=== PATIENT | female | born 1975 | race Hispanic/Latino ===

== ENCOUNTER 2021-12-11 19:39 | Inpatient (IN) | payer MEDICAID, OTHER, SELFPAY ==
[2021-12-11] MEDS ORDERED: Acetaminophen 500 MG TAB PO PRN (20:12)
[2021-12-11] MEDS ORDERED: Butorphanol Tartrate 1 MG/ML VIAL SLOW IVP PRN (20:12)
[2021-12-11] MEDS ORDERED: Lidocaine 1% (PF) 30 ML VIAL SC PRN (20:12)
[2021-12-11] MEDS ORDERED: Ondansetron PF 4 MG/2 ML Vial IVP PRN (20:12)
[2021-12-11] MEDS ORDERED: HYDROcodone/Acetaminophen 5/325 mg Tablet PO PRN (20:12)
[2021-12-11] MEDS ORDERED: Methylergonovine 0.2 MG/ML VIAL IM PRN (20:12)
[2021-12-11] MEDS ORDERED: Promethazine HCl 25 MG/ML VIAL IM PRN (20:12)
[2021-12-11] MEDS ORDERED: Diphenoxylate HCl/Atropine Tablet PO PRN (20:12)
[2021-12-11] MEDS ORDERED: Misoprostol 200 MCG TAB PR PRN (20:12)
[2021-12-11] MEDS ORDERED: hydrALAZINE 20 MG/ML VIAL SLOW IVP PRN (20:12)
[2021-12-11] MEDS ORDERED: Carboprost 250 MCG/ML AMP IM PRN (20:12)
[2021-12-11] MEDS ORDERED: Ibuprofen 800 MG TAB PO PRN (20:12)
[2021-12-11 20:23] VITALS: BMI 29.7
[2021-12-11 21:00] LABS: Hemoglobin 12.1 g/dL (12.0-15.5); Mean Corpuscular Hemoglobin 28.3 pg (27.0-33.0); Mean Corpuscular Volume 83.2 fl (81.6-98.3); Mean Platelet Volume 10.2 fl (7.4-10.4); Platelet Count 296 10x3/uL (150-450); RBC Distribution Width 14.4 % (11.5-14.5); Red Blood Cell (RBC) Count 4.28 10x6/uL (3.90-5.03); White Blood Cell (WBC) Count 10.8 10x3/uL (3.5-10.5)
[2021-12-11] MEDS ORDERED: Lactated Ringer's 1,000 ML IV SCH (21:00)
[2021-12-11] MEDS ORDERED: NS w/ Oxytocin 30 units 500 ML IV SCH (21:00)
[2021-12-11] MEDS ORDERED: Misoprostol 100 MCG TAB VAG SCH (21:00)
[2021-12-11] MEDS: Misoprostol 100 MCG TAB VAG SCH (21:14)
[2021-12-12] MEDS: Misoprostol 100 MCG TAB VAG SCH (02:51)
== END 2021-12-12 10:11 | disposition home or self-care (01) | DRG 779 ==
LOC: CSHLD 19:39
PROVIDERS: ADMIT Family Medicine; ATTEND Family Medicine
PROC: 10E0XZZ Delivery of Products of Conception, External Approach (ICD-10-PCS; principal; 2021-12-12)
PROC: 3E0P7VZ Introduction of Hormone into Female Reproductive, Via Natural or Artificial Opening (ICD-10-PCS; 2021-12-12)
DX: O02.1 Missed abortion (principal); O35.1XX0 Maternal care for (suspected) chromosomal abnormality in fetus, not applicable or unspecified
CPT/HCPCS: 36415; 85027; 86850; 86900; 86901; 88305; J0595

== ENCOUNTER 2025-05-08 21:10 | Emergency (ER) | payer SELFPAY ==
[2025-05-08 21:43] LABS: #Basophils 0.05 10x3/uL (0.0-0.2); #Eosinophils 0.35 10x3/uL (0.0-0.5); #Monocytes 0.65 10x3/uL (0.0-1.1); #Neutrophils 2.74 10x3/uL (1.5-8.4); %Basophils 0.7 % (0.0-2.0); %Eosinophils 4.7 % (0.0-6.0); %Lymphocytes 49.3 % (18.0-47.0); %Monocytes 8.7 % (0.0-10.0); %Neutrophils 36.3 % (40.0-75.0); Hematocrit 36.1 % (34.9-44.5); Hemoglobin 12.4 g/dL (12.0-15.5); Mean Corpuscular Hemoglobin 29.8 pg (27.0-33.0); Mean Corpuscular Volume 86.8 fL (81.6-98.3); Platelet Count 249 10x3/uL (150-450); Red Blood Cell (RBC) Count 4.16 10x6/uL (3.90-5.03); White Blood Cell (WBC) Count 7.51 10x3/uL (3.5-10.5)
[2025-05-08 21:59] LABS: ALT (SGPT) 18 U/L (Less than 34); AST (SGOT) 33 U/L (11-34); Albumin 4.1 g/dL (3.1-4.5); Alkaline Phosphatase 76 U/L (40-110); Anion Gap 13 mmol/L (10-20); BUN (Urea Nitrogen) 21 mg/dL (7.0-18.7); Bilirubin, Total 0.3 mg/dL (0.3-1.2); Calc. Creatinine Clearance 0 mL/min (70-130); Calcium 8.6 mg/dL (7.8-10.44); Carbon Dioxide 24 mmol/L (22-29); Chloride 106 mmol/L (98-107); Globulin 3.4 g/dL (2.4-3.5); Glucose 118 mg/dL (70-105); Potassium 4.4 mmol/L (3.5-5.1); Sodium 139 mmol/L (136-145)
[2025-05-08 22:04] LABS: Troponin I Less than 0.010 ng/mL (< 0.028)
[2025-05-09] MEDS ORDERED: Ketorolac Tromethamine 30 MG (1 mL) VIAL ONE (00:12)
[2025-05-09 00:42] LABS: Troponin I Less than 0.010 ng/mL (< 0.028)
== END 2025-05-09 01:00 | disposition home or self-care (01) ==
LOC: CSHERS 21:10
DX: R07.89 Other chest pain (principal)
CPT/HCPCS: 36415; 71045; 80053; 84484; 85025; 93005; 96372; J1885